=== PATIENT | female | born 1970 | race Caucasian/White ===

== ENCOUNTER 2022-02-11 09:53 | Emergency (ER) | payer BC ==
[2022-02-11] MEDS ORDERED: Sodium Chloride 0.9% 10 ML Syringe FLUSH PRN ×2 (10:57→11:33)
[2022-02-11] MEDS ORDERED: Sodium Chloride 0.9% 1,000 ML IV STA (11:27)
[2022-02-11] MEDS ORDERED: Iopamidol 612 MG/ML 100 ML Bottle IVPUSH ONE (11:33)
== END 2022-02-11 13:55 | disposition home or self-care (01) ==
LOC: JD.ED 09:53
DX: N30.00 Acute cystitis without hematuria (principal); K52.9 Noninfective gastroenteritis and colitis, unspecified; E11.9 Type 2 diabetes mellitus without complications; E78.00 Pure hypercholesterolemia, unspecified; Z79.899 Other long term (current) drug therapy
CPT/HCPCS: 36415; 74177; 80053; 81001; 83690; 83735; 85025; 86140; 96360; 96361; 99284; J3490; J7030; Q9967